=== PATIENT | female | born 1965 | race Asian ===

== ENCOUNTER 2018-11-29 09:45 | Day surgery (SDC) | payer BC, OTHER ==
[~2018-11-29] VITALS: Ht 152.4 cm; Wt 52.1 kg
[2018-11-29] MEDS ORDERED: LOVA20TA PO (10:23)
[2018-11-29] MEDS ORDERED: ADVIL (10:23)
[2018-11-29] MEDS ORDERED: ACET500C5 PO (10:23)
[2018-11-29 10:26] VITALS: Ht 152.4 cm; Wt 52.1 kg
[2018-11-29 11:48] VITALS: BP 114/77; PULSE 79; RESP 18
[2018-11-29] MEDS ORDERED: PROPOFOL 20 ML ONE ×2 (11:59→12:27)
--- NOTE | 2018-11-29 11:59 | PREAC ---
Date/Time of Note Date/Time of Note DATE: 11/29/18 TIME: 11:57 Anesthesia Eval and Record Evaluation Time Pre-Procedure Interview DATE: 11/29/18 TIME: 11:57 Age 52 Sex female NPO: 8 hrs Preoperative diagnosis Screening Planned procedure Colonoscopy Past Medical History Past Medical History: Includes Cardio: Dyslipidemia Surgery & Anesthesia Issues No known issue Meds Anticoagulation: No Beta Chanda within 24 hr: No Reason Beta Chanda not given: Pt. not on B-Hcanda Reported Medications [Advil] No Conflict Check 11/29/18 Acetaminophen* (Tylophen*) 500 Mg Capsule, 500 MG PO Q6H PRN for PAIN, TAB 11/29/18 Lovastatin* (Lovastatin*) 20 Mg Tablet, 20 MG PO HS, TAB 11/29/18 Meds reviewed: Yes Allergies Coded Allergies: No Known Allergy (Unverified , 11/29/18) Allergies Reviewed: Yes Labs/Studies Labs Reviewed: Reviewed by anesthesiologist test: N/A Studies: ECG (n/a), CXR (n/a) Pre-procedure Exam Last vitals Vital Signs Date Temp Pulse Resp B/P (MAP) Pulse Ox O2 O2 Flow FiO2 Time Delivery Rate 11/29/18 98.0 79 18 114/77 99 Room Air 11:48 (89) Airway: Adequate mouth opening, Adequate thyromental dist Mallampati: Mallampati II Teeth: Normal Lung: Normal Heart: Normal ASA Physical Status ASA physical status: 2 Emergency: None Planned Anesthetic General/MAC: MAC Pre-operative Attestations Prior to commencing anesthesia and surgery, the patient was re-evaluated, there was verification of: *The patient's identity *The results of appropriate recent lab work and preoperative vital signs *The above evaluation not changing prior to induction *Anesthetic plan, risk benefits, alternative and complications discussed with patient/family; questions answered; patient/family understands, accepts and wishes to proceed. INDERJIT JONES MD Nov 29, 2018 11:59
[2018-11-29 12:28] VITALS: BP 105/66; PULSE 75; RESP 18
--- NOTE | 2018-11-29 12:31 | PAC ---
Date/Time of Note Date/Time of Note DATE: 11/29/18 TIME: 12:30 Post-Anesthesia Notes Post-Anesthesia Note Last documented vital signs Vital Signs Date Temp Pulse Resp B/P (MAP) Pulse Ox O2 O2 Flow FiO2 Time Delivery Rate 11/29/18 98.0 79 18 114/77 99 Room Air 12:30 (89) Activity: WNL Respiratory function: WNL Cardiovascular function: WNL Mental status: Baseline Pain reasonably controlled: Yes Hydration appropriate: Yes Nausea/Vomiting absent: Yes INDERJIT JONES MD Nov 29, 2018 12:30
[2018-11-29 12:55] VITALS: BP 109/71; PULSE 70; RESP 18
== END 2018-11-29 14:05 | disposition home or self-care (01) ==
LOC: GIL 09:45
PROVIDERS: ATTEND Internal Medicine Gastroenterology
DX: Z12.11 Encounter for screening for malignant neoplasm of colon (principal); K64.8 Other hemorrhoids
CPT/HCPCS: 45378; Z7610